=== PATIENT | female | born 1945 | race African-American/Black ===

== ENCOUNTER 2021-02-27 17:08 | Observation (INO) ==
[2021-02-27] MEDS ORDERED: SODIUM CHLORIDE 0.9% 500 ML IV STA (19:38)
[2021-02-27] MEDS ORDERED: methylPREDNISolone SOD SUC 125 MG/2 ML VIAL IV PRN (19:39)
[2021-02-27] MEDS ORDERED: diphenhydrAMINE 50 MG/1 ML VIAL IV PRN ×2 (19:39)
[2021-02-27] MEDS ORDERED: ONDANSETRON 4 MG TABLET PO PRN (19:39)
[2021-02-27] MEDS ORDERED: methylPREDNISolone SOD SUC 125 MG/2 ML VIAL IM PRN (19:39)
[2021-02-27] MEDS ORDERED: diphenhydrAMINE CAP 25 MG CAPSULE PO PRN ×2 (19:39→19:45)
[2021-02-27] MEDS ORDERED: ACETAMINOPHEN 325 MG TABLET PO PRN (19:39)
[2021-02-27] MEDS ORDERED: MECLIZINE 25 MG TABLET PO PRN (19:39)
[2021-02-27] MEDS ORDERED: ONDANSETRON 4 MG/2 ML VIAL IV PRN (19:39)
[2021-02-27 20:14] LABS: Basophils % 0.9 % (0.0-0.8); Hematocrit 41.7 VOL% (35.7-47.0); Hemoglobin 13.7 GM/DL (12.0-16.0); Immature Granulocytes % 0.3 %; Immature Granulocytes Absolute 0.01 #; Lymphocytes # 1.3 10*3/uL (1.4-4.0); Lymphocytes % 39.1 % (21.3-54.2); Mean Corpuscular HGB Conc 32.9 GM/DL (32-36); Mean Corpuscular Volume 87.6 FL (87-102); Monocytes % 14.2 % (1.7-12.7); Neutrophils % 45.5 % (38.7-73.9); Platelet Count 292 T/CUMM (130-400); Red Blood Count 4.76 MC/CUMM (3.8-5.5); Red Cell Distribution Width 13.3 % (9.3-17.3); White Blood Count 3.4 T/CUMM (4-12)
[2021-02-27] MEDS ORDERED: CASIRIVIMAB/IMDEVIMAB 1,200 MG in SODIUM CHLORIDE 0.9% 100 ML IV ONE (20:32)
[2021-02-27] MEDS ORDERED: DEXAMETHASONE 4 MG/1 ML VIAL IV STA (20:37)
[2021-02-27] MEDS ORDERED: DEXAMETHASONE 10 MG/1 ML VIAL ONE (20:42)
[2021-02-27 20:43] LABS: Albumin 3.8 G/DL (3.4-5.0); Bilirubin,Total 0.5 MG/DL (0.20-1.00); Calcium 9.2 MG/DL (8.5-10.1); Osmolality,Calculated 276.8 MOS/KG (273-304); Potassium 4.2 MMOL/L (3.5-5.1); Total Protein 8.5 G/DL (6.4-8.2)
[2021-02-27] MEDS ORDERED: ASPIRIN 325 MG TABLET PO STA (20:55)
[2021-02-27] MEDS ORDERED: AZITHROMYCIN INJ 500 MG in SODIUM CHLORIDE 0.9% 250 ML IV ONE (21:23)
[2021-02-27] MEDS ORDERED: MELATONIN 3 MG TABLET PO PRN (21:23)
[2021-02-27] MEDS ORDERED: ENOXAPARIN 40 MG/0.4 ML SYRINGE SUBCUT SCH (21:30)
[2021-02-27] MEDS ORDERED: POTASSIUM CHLORIDE 20 MEQ TABLET PO PRN ×2 (21:31)
[2021-02-27] MEDS ORDERED: POTASSIUM CHLORIDE 20 MEQ TABLET PO STA (22:12)
[2021-02-27] MEDS: SODIUM CHLORIDE 0.9% 1,000 ML IV SCH (22:35)
[2021-02-27 23:25] LABS: PT Patient Result 11.2 SECS (10.5-12.0)
[2021-02-28 03:37] LABS: Basophils % 0.5 % (0.0-0.8); Hematocrit 39.5 VOL% (35.7-47.0); Hemoglobin 13.1 GM/DL (12.0-16.0); Immature Granulocytes % 0.5 %; Immature Granulocytes Absolute 0.01 #; Lymphocytes # 0.6 10*3/uL (1.4-4.0); Lymphocytes % 33.7 % (21.3-54.2); Mean Corpuscular HGB Conc 33.2 GM/DL (32-36); Mean Corpuscular Volume 86.2 FL (87-102); Mean Platelet Volume 10.3 FL (9.6-12.0); Monocytes % 3.7 % (1.7-12.7); Neutrophils % 61.6 % (38.7-73.9); Platelet Count 283 T/CUMM (130-400); Red Blood Count 4.58 MC/CUMM (3.8-5.5); Red Cell Distribution Width 13.5 % (9.3-17.3); White Blood Count 1.9 T/CUMM (4-12)
[2021-02-28 03:55] LABS: Alanine Aminotransferase 18 U/L (13-56); Albumin 3.5 G/DL (3.4-5.0); Alkaline Phosphatase 98 U/L (45-117); Aspartate Amino Transferase 31 U/L (0-37); Blood Urea Nitrogen 25 MG/DL (7-18); Carbon Dioxide 22 MMOL/L (21-32); Estimated Glom Filtration Rate 55 ML/MIN; Ferritin 317.7 ng/mL (8-252); Glucose 142 MG/DL (74-106); Osmolality,Calculated 273.2 MOS/KG (273-304); Potassium 4.1 MMOL/L (3.5-5.1); Sodium 134 MMOL/L (136-145); Total Protein 8.4 G/DL (6.4-8.2)
[2021-02-28 04:03] LABS: Band Neutrophils 1 % (0-10); Lymphocytes 21 % (20-55); Platelet Estimate Adequate; Segmented Neutrophils 70 % (50-85); Total Cells Counted 100
[2021-02-28] MEDS ORDERED: hydrALAZINE 20 MG/1 ML VIAL IV STA (05:33)
[2021-02-28] MEDS: SODIUM CHLORIDE 0.9% 1,000 ML IV SCH (08:27)
[2021-02-28] MEDS ORDERED: FAMOTIDINE 20 MG TABLET PO SCH (09:00)
[2021-02-28] MEDS ORDERED: AZITHROMYCIN 250 MG TABLET PO SCH (09:00)
[2021-02-28] MEDS ORDERED: CHOLECALCIFEROL 1,000 UNIT TABLET PO SCH (09:00)
[2021-02-28] MEDS ORDERED: ZINC GLUCONATE 50 MG TABLET PO SCH (09:00)
[2021-02-28] MEDS ORDERED: DEXAMETHASONE 4 MG/1 ML VIAL IV SCH (09:00)
[2021-02-28] MEDS ORDERED: carvediloL 25 MG TABLET PO SCH (09:00)
[2021-02-28] MEDS ORDERED: VALSARTAN HYDROCHLOROTHIAZIDE PO SCH (09:00)
[2021-02-28] MEDS ORDERED: CETIRIZINE 10 MG TABLET PO SCH (09:00)
[2021-02-28] MEDS ORDERED: ASCORBIC ACID 500 MG TABLET PO SCH (09:00)
[2021-02-28] MEDS ORDERED: DEXAMETHASONE 10 MG/1 ML VIAL IV SCH (09:00)
[2021-02-28 15:24] VITALS: BP 186/85
== END 2021-02-28 15:31 | disposition home health service (06) ==
LOC: SUPCPDRO → N.ED 17:08 → N.EDINP 17:08
PROVIDERS: ADMIT Internal Medicine; ATTEND Internal Medicine